=== PATIENT | male | born 1990 | race Caucasian/White ===

== ENCOUNTER 2017-07-12 15:08 | Emergency (ER) | payer OTHER ==
[2017-07-12 15:21] VITALS: BP 135/76; PULSE 79; RESP 16; O2SAT 98
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
== END 2017-07-12 18:03 | disposition home or self-care (01) ==
LOC: SED 15:08
DX: R51 Headache (principal); V79.50XA Passenger on bus injured in collision with unspecified motor vehicles in traffic accident, initial encounter; Y93.89 Activity, other specified; Y99.8 Other external cause status; Y92.410 Unspecified street and highway as the place of occurrence of the external cause; Z88.0 Allergy status to penicillin; Z88.8 Allergy status to other drugs, medicaments and biological substances